=== PATIENT | female | born 1990 | race Caucasian/White ===

== ENCOUNTER → 2017-07-15 | Outpatient (REF) | payer OTHER ==
[~2017-07-15] MED LIST: BACL10TA2 OR; LIDOCAINE 5% EXT; MAGN250T OR; NORT10CA2 OR; RIBO100C OR; Savella PO; TOPI25TA2 OR; TRAM50TA2 OR
== END ==
LOC: M SFHCCLAY 09:36
PROVIDERS: ATTEND Family Medicine
DX: Z12.4 Encounter for screening for malignant neoplasm of cervix (principal)